=== PATIENT | female | born 1945 | race Caucasian/White ===

== ENCOUNTER 2017-04-04 19:19 | Inpatient (IN) | payer MEDICARE, MEDICAID ==
[~2017-04-04] VITALS: Ht 167.6 cm; Wt 54.4 kg
--- NOTE | 2017-04-04 19:54 | NUR ---
DR HUNTER AT [facility] FOR [facility]. Addendum: 04/04/17 at 2247 by BABAK Pt medicated for cont discomfort, will monitor for effects of medication.
--- NOTE | 2017-04-04 20:19 | NUR ---
Pt seen by Dr. Gonzalez. Labs drawn and sent. PCXR obtained. Pt medicated for discomfort, will monitor for effects of medication. Pt resting in position of comfort for self.
[2017-04-04 20:24] LABS: BASOPHILS % (AUTO) 0.2 % (0.0-2.0); EOSINOPHILS % (AUTO) 0.3 % (0.0-7.0); HEMOGLOBIN 9.4 G/DL (12.0-16.0); LYMPHOCYTES # (AUTO) 0.9 K/UL (0.8-4.8); LYMPHOCYTES % (AUTO) 9.8 % (20.5-51.5); MEAN CORPUSCULAR HEMOGLOBIN 29.2 UUG (27.0-31.0); MEAN CORPUSCULAR HGB CONC 32 g/dL (32.0-37.0); MEAN CORPUSCULAR VOLUME 90.1 FL (81.0-99.0); MONOCYTES # (AUTO) 0.3 K/UL (0.1-1.30); MONOCYTES % (AUTO) 2.8 % (0.0-11.0); NEUTROPHILS # (AUTO) 8.4 K/UL (1.8-8.9); NEUTROPHILS % (AUTO) 86.9 % (38.5-71.5); PLATELET COUNT (AUTO) 261 K/UL (150-450); RED BLOOD CELL COUNT(AUTO) 3.21 MIL/UL (4.2-5.4); WHITE BLOOD COUNT (AUTO) 9.6 K/UL (4.0-11.2)
[2017-04-04 20:29] LABS: CREATININE 0.9 mg/dL (0.6-1.3); POTASSIUM 3.8 mmol/L (3.5-5.1)
[2017-04-04 20:41] LABS: BILIRUBIN,DIRECT 0.1 mg/dL (0.0-0.2); BILIRUBIN,TOTAL 0.3 mg/dL (0.2-1.0); TOTAL PROTEIN, SERUM 7.5 g/dL (6.4-8.2)
--- NOTE | 2017-04-04 21:04 | NUR ---
Pt conts to c/o 04/[address] Gonzalez notified, awaiting further orders.
--- NOTE | 2017-04-04 21:59 | NUR ---
Pt to be admitted. IV established. Pt medicated for discomfort, will monitor for effects of medication.
[2017-04-04] MEDS ORDERED: BENA40TA2 PO (22:32)
[2017-04-04] MEDS ORDERED: LEVO750T46 PO (22:32)
[2017-04-04] MEDS ORDERED: MONT10TA22 PO (22:32)
[2017-04-04] MEDS ORDERED: ALBU18HF2 IH (22:32)
[2017-04-04] MEDS ORDERED: SERT100T PO (22:32)
[2017-04-04] MEDS ORDERED: TIOT18CA3 IH (22:32)
[2017-04-04] MEDS ORDERED: AMLO5TAB4 PO (22:32)
[2017-04-04] MEDS ORDERED: GUAI100S9 PO (22:32)
[2017-04-04] MEDS ORDERED: PRED20TA PO (22:32)
[2017-04-04] MEDS ORDERED: SIMV40TA5 PO (22:32)
[2017-04-04] MEDS ORDERED: FLUT1BLS4 IH (22:32)
[2017-04-04] MEDS ORDERED: OMEP20TA5 PO (22:32)
[2017-04-04] MEDS ORDERED: IBUP-1955 PO (22:32)
--- NOTE | 2017-04-04 22:37 | NUR ---
Pt ambulated to br with steady gait. Pt conts to c/o pain. Dr. Gonzalez notified, awaiting further orders.
--- NOTE | 2017-04-04 22:52 | NUR ---
Report called to [facility]. Preparing to transfer pt to the floor.
--- NOTE | 2017-04-04 23:25 | NUR ---
RECEIVED PATIENT FROM ER VIA [employer]. PATIENT A/O X4, COOPERATIVE, LIVELY, WITH NO SIGNS OF PAIN OR DISCOMFORT. PATIENT ON TELE. INITIAL ASSESSMENT COMPLETED. IV HEP LOCK RIGHT AC 20G. CALL LIGHT PLACED WITHIN REACH OF PATIENT. WILL CONTINUE TO MONITOR THROUGH SHIFT.
[2017-04-04 23:38] VITALS: BP 147/68
[2017-04-05 04:00] VITALS: BP 119/75
--- NOTE | 2017-04-05 06:54 | NUR ---
PATIENT LYING IN BED SLEEPING WITH NO SIGNS OF PAIN OR DISCOMFORT. VITALS STABLE AT END OF SHIFT. ALL NEEDS ATTENDED THROUGH OUT SHIFT. SHIFT REPORT GIVEN AT BEDSIDE.
[2017-04-05 07:59] LABS: BASOPHILS % (AUTO) 0.3 % (0.0-2.0); EOSINOPHILS # (AUTO) 0.1 K/uL (0.0-0.7); EOSINOPHILS % (AUTO) 0.7 % (0.0-7.0); HEMOGLOBIN 9.3 G/DL (12.0-16.0); LYMPHOCYTES # (AUTO) 2.4 K/UL (0.8-4.8); LYMPHOCYTES % (AUTO) 28.2 % (20.5-51.5); MEAN CORPUSCULAR HEMOGLOBIN 29.3 UUG (27.0-31.0); MEAN CORPUSCULAR HGB CONC 32 g/dL (32.0-37.0); MONOCYTES # (AUTO) 0.5 K/UL (0.1-1.30); MONOCYTES % (AUTO) 6.1 % (0.0-11.0); NEUTROPHILS # (AUTO) 5.6 K/UL (1.8-8.9); NEUTROPHILS % (AUTO) 64.7 % (38.5-71.5); PLATELET COUNT (AUTO) 245 K/UL (150-450); RED BLOOD CELL COUNT(AUTO) 3.19 MIL/UL (4.2-5.4); WHITE BLOOD COUNT (AUTO) 8.6 K/UL (4.0-11.2)
[2017-04-05 08:41] LABS: BILIRUBIN,TOTAL 0.2 mg/dL (0.2-1.0); MAGNESIUM 1.7 mg/dL (1.8-2.4); PHOSPHOROUS 4.8 mg/dL (2.5-4.9); POTASSIUM 3.8 mmol/L (3.5-5.1); TOTAL PROTEIN, SERUM 7.2 g/dL (6.4-8.2)
[2017-04-05 09:13] LABS: THYROID STIMULATING HORMONE 3.186 mIU/mL (0.358-3.740)
[2017-04-05 11:44] VITALS: BP 114/72
[2017-04-05 15:26] VITALS: BP 98/61
--- NOTE | 2017-04-05 18:09 | NUR ---
1000 Patient does not complain and does not present any signs/symptoms of chest pain. Patient complained of pain in bilateral knees and hands. [place] PRN given to patient and pain decreased to tolerable level.
--- NOTE | 2017-04-05 18:11 | NUR ---
1600 patient complained of pain in knees bilaterally and in the hands. Pain verbalized pain level of 9/10 on pain scale. Grant given to patient and patient's pain reassessed and decreased to a tolerable level of 3/10 on pain scale. Patient did not complain of chest pain throughout chest.
--- NOTE | 2017-04-05 19:00 | NUR ---
RECEIVED PT IN BED. AWAKE, ALERT X4. ROOM AIR. HEP LOCK RIGHT FOREARM INTACT. ABLE TO VERBALIZE NEEDS. DENIES C/O OF SOB. NO ACUTE DISTRESS NOTED. CALL LIGHT WITHIN REACH. WILL CONTINUE TO MONITOR.
[2017-04-05 20:25] VITALS: BP 114/60
--- NOTE | 2017-04-06 03:30 | NUR ---
PT AWAKE IN BED NO ACUTE DISTRESS NOTED. PT DID NOT WANT MEDICATION FOR SLEEP. CONTINUOUSLY ASKING FOR COFFEE. NO C/O PHYSICAL DISCOMFORT AT THIS TIME. NO ACUTE DISTRESS NOTED. WILL CONTINUE TO MONITOR FOR SAFETY.
[2017-04-06 06:00] VITALS: BP 136/72
[2017-04-06 06:42] LABS: BASOPHILS % (AUTO) 0.4 % (0.0-2.0); EOSINOPHILS # (AUTO) 0.1 K/uL (0.0-0.7); EOSINOPHILS % (AUTO) 1.1 % (0.0-7.0); HEMATOCRIT 32.3 % (37-47); HEMOGLOBIN 10.6 G/DL (12.0-16.0); LYMPHOCYTES # (AUTO) 2.2 K/UL (0.8-4.8); MEAN CORPUSCULAR HEMOGLOBIN 29.8 UUG (27.0-31.0); MEAN CORPUSCULAR HGB CONC 33 g/dL (32.0-37.0); MEAN CORPUSCULAR VOLUME 90.9 FL (81.0-99.0); MONOCYTES # (AUTO) 0.5 K/UL (0.1-1.30); MONOCYTES % (AUTO) 6.5 % (0.0-11.0); NEUTROPHILS # (AUTO) 5.4 K/UL (1.8-8.9); PLATELET COUNT (AUTO) 246 K/UL (150-450); RED BLOOD CELL COUNT(AUTO) 3.56 MIL/UL (4.2-5.4); WHITE BLOOD COUNT (AUTO) 8.2 K/UL (4.0-11.2)
[2017-04-06 07:05] LABS: BILIRUBIN,TOTAL 0.2 mg/dL (0.2-1.0); MAGNESIUM 1.9 mg/dL (1.8-2.4); PHOSPHOROUS 4.9 mg/dL (2.5-4.9); TOTAL PROTEIN, SERUM 7.1 g/dL (6.4-8.2)
[2017-04-06 08:53] LABS: *BILIRUBIN,URIN NEGATIVE (NEGATIVE); *BLOOD, URINE NEGATIVE (NEGATIVE); *CLARITY,URINE CLEAR (CLEAR); *COLOR,URINE YELLOW (YELLOW); *KETONES,URINE NEGATIVE (NEGATIVE); *PROTEIN,URINE NEGATIVE (NEGATIVE); *UROBILINOGEN,URINE 0.2 E.U./dl (NORMAL); LEUKOCYTE ESTERASE ,URINE TRACE (NEGATIVE); NITRITE, URINE NEGATIVE (NEGATIVE); UGLUCOSE NEGATIVE (NEGATIVE)
[2017-04-06 08:57] LABS: BACTERIA,URINE NONE SEEN /HPF (NONE SEEN); RBC,URINE NONE SEEN /HPF (0-3); SQUAMOUS EPITHELIAL CELL,UR FEW /HPF (NONE SEEN); WBC,URINE 0-3 /HPF (0-3)
[2017-04-06 11:50] VITALS: BP 122/71
[2017-04-06 16:05] VITALS: BP 139/61
--- NOTE | 2017-04-06 18:17 | NUR ---
. NO COMPLAINTS OF CHEST PAIN. COMPLAINS OF PAIN OF 9/10 ON PAIN SCALE IN BACK, KNEES, AND HANDS. NORCO ADMINISTERED TO PATIENT, LAST GIVEN AT 1809. PATIENT'S IRON LEVELS LOW (26); FERRITON GIVEN TO PATIENT. PATIENT EXPERIENCED CONSTIPATION; PRUNE JUICE MIXED WITH MILK OF MAGNESIUM GIVEN TO PATIENT 1630. OCCULT BLOOD STOOL ORDERED AND EQUIPMENT PROVIDED TO PATIENT BUT PATIENT AWAITING BOWEL MOVEMENT AT 0630. PATIENT'S VITAL SIGNS WNL THROUGHOUT SHIFT.
[2017-04-06 20:17] VITALS: BP 118/55
[2017-04-07 04:00] VITALS: BP 126/81
--- NOTE | 2017-04-07 06:30 | NUR ---
PT SLEPT WELL, IN NO ACUTE DISTRESS, NO C/O OF SOB, CHEST PAIN. PAIN MANAGEMENT ORDERED. NO SIGNIFICANT CHANGE OF CONDITION THROUGHOUT THE SHIFT. CALL LIGHT WITHIN REACH, BED ALARM ON. WILL CONTINUE TO MONITOR.
[2017-04-07 06:44] LABS: BASOPHILS % (AUTO) 0.2 % (0.0-2.0); EOSINOPHILS % (AUTO) 0.4 % (0.0-7.0); HEMATOCRIT 34.3 % (37-47); HEMOGLOBIN 11.3 G/DL (12.0-16.0); LYMPHOCYTES # (AUTO) 1.1 K/UL (0.8-4.8); LYMPHOCYTES % (AUTO) 16.7 % (20.5-51.5); MEAN CORPUSCULAR HEMOGLOBIN 29.9 UUG (27.0-31.0); MEAN CORPUSCULAR HGB CONC 33 g/dL (32.0-37.0); MEAN CORPUSCULAR VOLUME 90.9 FL (81.0-99.0); MONOCYTES # (AUTO) 0.3 K/UL (0.1-1.30); MONOCYTES % (AUTO) 3.7 % (0.0-11.0); NEUTROPHILS # (AUTO) 5.4 K/UL (1.8-8.9); PLATELET COUNT (AUTO) 288 K/UL (150-450); RED BLOOD CELL COUNT(AUTO) 3.77 MIL/UL (4.2-5.4); WHITE BLOOD COUNT (AUTO) 6.9 K/UL (4.0-11.2)
[2017-04-07 06:56] LABS: CREATININE 0.9 mg/dL (0.6-1.3); PHOSPHOROUS 3.9 mg/dL (2.5-4.9); POTASSIUM 4.3 mmol/L (3.5-5.1)
--- NOTE | 2017-04-07 08:00 | NUR ---
Discussed plan of care with pt re: pain management and fall precautions. Pt agreeable with plan of care. Call light is within reach.
[2017-04-07 09:11] LABS: VIT D, 25-HYDROXY 15.2 ng/mL (30.0-100.0)
[2017-04-07 11:43] VITALS: BP 139/65
[2017-04-07 16:06] VITALS: BP 127/67
--- NOTE | 2017-04-07 18:30 | NUR ---
Plan of care effective no fall and pt has remained on her pain goal of 2/10. Call light is within reach.
[2017-04-07 20:00] VITALS: BP 143/69
--- NOTE | 2017-04-07 23:00 | NUR ---
ALERT AND ORIENTED X4. AMBULATORY. PAIN 9/0 GIVEN OPIATES SCHEDULED. IV CATH LEAKING, REINSERTED ON RT FOREARM.
[2017-04-08 04:53] VITALS: BP 130/76
[2017-04-08 11:30] VITALS: BP 110/69
[2017-04-08] MEDS ORDERED: MAGN400O6 PO (11:55)
[2017-04-08] MEDS ORDERED: ZOLP5TAB8 PO (11:55)
[2017-04-08] MEDS ORDERED: Oxycodone Sr PO (11:55)
[2017-04-08] MEDS ORDERED: DOCU100C36 PO (11:55)
[2017-04-08] MEDS ORDERED: ASPI-618 PO (11:55)
[2017-04-08] MEDS ORDERED: CYAN10006 IM (11:55)
[2017-04-08] MEDS ORDERED: ACET325T53 PO (11:55)
[2017-04-08] MEDS ORDERED: METH4TAB3 PO (11:55)
[2017-04-08] MEDS ORDERED: FERR325T28 PO (11:55)
[2017-04-08] MEDS ORDERED: CHOL10002 PO (11:55)
[2017-04-08] MEDS ORDERED: OMEG1CAP PO (11:55)
[2017-04-08] MEDS ORDERED: HYDR-3326 PO (11:55)
[2017-04-08] MEDS ORDERED: BISA10SU12 RC (12:04)
--- NOTE | 2017-04-08 14:30 | NUR ---
Report given to EMT and TRAV RN from SNF. Pt is in no acute distress. Pt finally had a LARGE BOWEL MOVEMENT today. Mag citrate and suppository was effective. Pt is in no acute distress upon discharge. IV d/c. Discharge instructions given to pt. Pt verbalized understanding. Copy of medications reconciliation sent to SNF. Pt skin remains intact. Pt d/c to [facility] per case management.
[2017-04-08 15:39] LABS: *OCCULT BLOOD STOOL NEGATIVE (NEGATIVE)
== END 2017-04-08 15:00 | DRG 191 ==
LOC: ER 19:19 → TELE 22:59 → MED 04-05 10:30
PROVIDERS: ADMIT Internal Medicine; ATTEND Internal Medicine
DX: J44.0 Chronic obstructive pulmonary disease with (acute) lower respiratory infection (principal); I38 Endocarditis, valve unspecified; I11.9 Hypertensive heart disease without heart failure; F17.210 Nicotine dependence, cigarettes, uncomplicated; E53.8 Deficiency of other specified B group vitamins; D50.9 Iron deficiency anemia, unspecified; J44.1 Chronic obstructive pulmonary disease with (acute) exacerbation; J20.8 Acute bronchitis due to other specified organisms; E83.42 Hypomagnesemia; M41.9 Scoliosis, unspecified; A49.9 Bacterial infection, unspecified; Z79.899 Other long term (current) drug therapy; E78.5 Hyperlipidemia, unspecified; G89.29 Other chronic pain; K21.9 Gastro-esophageal reflux disease without esophagitis; Z59.0 Homelessness; K56.41 Fecal impaction; I70.0 Atherosclerosis of aorta; E55.9 Vitamin D deficiency, unspecified; K29.70 Gastritis, unspecified, without bleeding
CPT/HCPCS: 36415; 70030-TC; 71010; 82306; 82378; 83550; 83735; 84100; 84443; 85025; 85730; 87086; 93005; 93307; 94664; A4217; A4663; J1940; J1956; J2270; J2405; J2916; J3420; J3475; J3490; J7050; J7512

== ENCOUNTER 2017-04-30 22:01 | Inpatient (IN) | payer MEDICAID, MEDICARE ==
[~2017-04-30] VITALS: Ht 170.2 cm; Wt 50.8 kg
[~2017-04-30 22:01] MED LIST: ACET325T53 PO; ALBU18HF2 IH; AMLO5TAB4 PO; ASPI-618 PO; BISA10SU12 RC; CHOL10002 PO; CYAN10006 IM; DOCU100C36 PO; FERR325T28 PO; FLUT1BLS4 IH; GUAI100S9 PO; HYDR-3326 PO; MAGN400O6 PO; METH4TAB3 PO; MONT10TA22 PO; OMEG1CAP PO; OMEP20TA5 PO; Oxycodone Sr PO; SERT100T PO; TIOT18CA3 IH; ZOLP5TAB8 PO
[2017-04-30] MEDS ORDERED: LEVOFLOXACIN 750MG/D5W 150 ML IV ONE (22:15)
[2017-04-30] MEDS ORDERED: IV NORMAL SALINE 1000 ML BAG IV ONE (22:15)
[2017-04-30] MEDS ORDERED: PIPERACILLIN SODIUM/TAZOBACTAM 3.375 G in IV DEXTROSE 5% 50 ML IV ONE (22:15)
[2017-04-30] MEDS ORDERED: UBID100C PO (22:24)
[2017-04-30 22:40] LABS: CREATININE 0.8 mg/dL (0.6-1.3); POTASSIUM 3.4 mmol/L (3.5-5.1)
[2017-04-30 22:41] LABS: BASOPHILS % (AUTO) 0.3 % (0.0-2.0); EOSINOPHILS % (AUTO) 0.2 % (0.0-7.0); HEMATOCRIT 34.2 % (37-47); HEMOGLOBIN 11.4 G/DL (12.0-16.0); LYMPHOCYTES # (AUTO) 1.3 K/UL (0.8-4.8); LYMPHOCYTES % (AUTO) 8.5 % (20.5-51.5); MEAN CORPUSCULAR HGB CONC 33 g/dL (32.0-37.0); MEAN CORPUSCULAR VOLUME 90.3 FL (81.0-99.0); MONOCYTES % (AUTO) 6.6 % (0.0-11.0); NEUTROPHILS # (AUTO) 12.6 K/UL (1.8-8.9); NEUTROPHILS % (AUTO) 84.4 % (38.5-71.5); PLATELET COUNT (AUTO) 259 K/UL (150-450); RED BLOOD CELL COUNT(AUTO) 3.78 MIL/UL (4.2-5.4); WHITE BLOOD COUNT (AUTO) 14.9 K/UL (4.0-11.2)
[2017-04-30 22:53] LABS: BILIRUBIN,DIRECT 0.1 mg/dL (0.0-0.2); BILIRUBIN,TOTAL 0.4 mg/dL (0.2-1.0); TOTAL PROTEIN, SERUM 7.7 g/dL (6.4-8.2)
[2017-04-30 22:58] LABS: *BILIRUBIN,URIN NEGATIVE (NEGATIVE); *BLOOD, URINE NEGATIVE (NEGATIVE); *CLARITY,URINE CLEAR (CLEAR); *COLOR,URINE STRAW (YELLOW); *KETONES,URINE NEGATIVE (NEGATIVE); *PROTEIN,URINE NEGATIVE (NEGATIVE); *UROBILINOGEN,URINE 0.2 E.U./dl (NORMAL); LEUKOCYTE ESTERASE ,URINE NEGATIVE (NEGATIVE); NITRITE, URINE NEGATIVE (NEGATIVE); PH,URINE 6.5 (5.0-8.0); UGLUCOSE NEGATIVE (NEGATIVE)
[2017-04-30] MEDS ORDERED: HYDROCODONE/APAP 5-325MG TABLET PO ONE (23:00)
[2017-04-30 23:16] LABS: BACTERIA,URINE FEW /HPF (NONE SEEN); RBC,URINE 0-3 /HPF (0-3); SQUAMOUS EPITHELIAL CELL,UR FEW /HPF (NONE SEEN); WBC,URINE 0-3 /HPF (0-3)
[2017-04-30 23:22] LABS: BAND % (MANUAL) 9 % (0-10); LYMPHOCYTES % (MANUAL) 12 % (20-40); MONOCYTES % (MANUAL) 2 % (2-10); NEUTROPHILS % (MANUAL) 77 % (42-75)
[2017-04-30] MEDS ORDERED: HYDROCODONE/APAP 5-325MG TABLET ONE (23:24)
--- NOTE | 2017-04-30 23:38 | NUR ---
Call placed to [facility], Dr. Jose will be paged.
[2017-05-01] MEDS ORDERED: HYDROCODONE/APAP 5-325MG TABLET PO ONE
[2017-05-01] MEDS ORDERED: HYDROCODONE/APAP 5-325MG TABLET ONE (00:09)
[2017-05-01 01:05] VITALS: BP 98/49
--- NOTE | 2017-05-01 01:05 | NUR ---
TRANSFERED TO 2ND FLOOR TELE VIA [facility]
--- NOTE | 2017-05-01 01:10 | NUR ---
ADMITTED IN TELE UNIT UNDER THE CARE OF DR SLOAN, INVENTORY LIST DONE.
[2017-05-01] MEDS ORDERED: ONDANSETRON 4 MG/2 ML VIAL IV PRN (02:30)
[2017-05-01] MEDS ORDERED: HYDROMORPHONE 1 MG/1 ML DISP.SYRIN IV PRN (02:30)
[2017-05-01 04:00] VITALS: BP 122/61
[2017-05-01] MEDS: ACETAMINOPHEN 325 MG TABLET PO PRN ×3 (06:09→23:39)
--- NOTE | 2017-05-01 06:12 | NUR ---
PATIENT TEMP 100.1 GIVEN TYLENOL 650MG PO PLUS COOLING MEASURES, GIVEN HOT TEA. CONT TO MONITOR.
[2017-05-01] MEDS ORDERED: ACETAMINOPHEN 325 MG TABLET ONE (06:22)
--- NOTE | 2017-05-01 07:12 | NUR ---
PATIENT UNCOOPERATIVE WITH CARE, REFUSED TO USE COOLING BAGS, PATIENT STILL HAS ELEVATED TEMP OF 103. DUE TO PNEUMONIA, CONT COOLING MEASURES, WILL ENDORSE TO NEXT SHIFT.
[2017-05-01] MEDS: HYDROMORPHONE 2 MG/1 ML DISP.SYRIN IV PRN ×4 (08:58→21:30)
[2017-05-01 09:19] LABS: BILIRUBIN,TOTAL 0.4 mg/dL (0.2-1.0); CREATININE 0.8 mg/dL (0.6-1.3); MAGNESIUM 1.6 mg/dL (1.8-2.4); PHOSPHOROUS 2.9 mg/dL (2.5-4.9); POTASSIUM 3.1 mmol/L (3.5-5.1); TOTAL PROTEIN, SERUM 6.7 g/dL (6.4-8.2)
[2017-05-01 09:24] LABS: BASOPHILS % (AUTO) 0.1 % (0.0-2.0); EOSINOPHILS % (AUTO) 0.1 % (0.0-7.0); HEMATOCRIT 30.3 % (31.2-41.9); HEMOGLOBIN 10.3 g/dL (10.9-14.3); LYMPHOCYTES # (AUTO) 0.6 K/uL (20.0-40.0); LYMPHOCYTES % (AUTO) 4.5 % (20.5-51.5); MEAN CORPUSCULAR HGB CONC 34 g/dL (32.3-35.6); MEAN CORPUSCULAR VOLUME 90.7 fL (75.5-95.3); MONOCYTES % (AUTO) 7.9 % (0.0-11.0); NEUTROPHILS # (AUTO) 11.5 K/uL (1.8-8.9); NEUTROPHILS % (AUTO) 87.4 % (38.5-71.5); PLATELET COUNT (AUTO) 210 K/uL (179-408); RED BLOOD CELL COUNT(AUTO) 3.34 MIL/uL (3.63-4.92); WHITE BLOOD COUNT (AUTO) 13.2 K/uL (3.8-11.8)
[2017-05-01] MEDS ORDERED: OXYC20TA73 PO (10:06)
[2017-05-01] MEDS ORDERED: HYDR-3326 PO (10:06)
--- NOTE | 2017-05-01 10:35 | NUR ---
PT BP 80/43 ON RIGHT ARM, RECHECKED 78/46. PT BP 77/41 ON LEFT ARM AND RECHECKED 80/42. DR NOTIFIED AWAITING ORDERS
[2017-05-01] MEDS ORDERED: POTASSIUM CHLORIDE 20 MEQ TAB.PRT.SR PO ONE (10:45)
[2017-05-01] MEDS ORDERED: MAGNESIUM OXIDE 400 MG TABLET PO ONE (10:45)
[2017-05-01] MEDS ORDERED: PIPERACILLIN/TAZOBACTAM/D5W 3.375 G in PREMIXED 1 EACH IV SCH (10:45)
[2017-05-01] MEDS ORDERED: BISACODYL 10 MG SUPP.RECT RC PRN (11:00)
[2017-05-01] MEDS ORDERED: MAGNESIUM HYDROXIDE 30 ML LIQUID UDC PO PRN (11:00)
[2017-05-01] MEDS ORDERED: IV NORMAL SALINE 250 ML IV ONE (11:30)
[2017-05-01 11:41] VITALS: BP 80/42
[2017-05-01] MEDS: POTASSIUM CHLORIDE 20 MEQ in IV NS 1000 ML 1,000 ML IV PRN (12:39)
[2017-05-01] MEDS: PIPERACILLIN/TAZOBACTAM/D5W 3.375 G in PREMIXED 1 EACH IV SCH ×2 (12:39→22:03)
--- NOTE | 2017-05-01 12:45 | NUR ---
PT BP 103/60. PT REQUESTING PAIN MEDICATION, PAIN MEDICATION GIVEN. WILL CONTINUE TO MONITOR CLOSELY
--- NOTE | 2017-05-01 14:35 | NUR ---
PT TEMP 100.6, TYLENOL GIVEN WILL CONTINUE TO MONITOR
[2017-05-01 15:14] VITALS: BP 85/43
[2017-05-01 20:00] VITALS: BP 107/62
--- NOTE | 2017-05-01 20:00 | NUR ---
PATIENT ALERT, ORIENTED X3 ,TEMP 98.9 BP107/62,SEEN BY , ORDER RECEIVED.CONTINUE C/O GENERALIZED CHRONIC PAIN , PAIN MEDICATION GIVEN NEEDED, MONITOR BP CLOSELY.
[2017-05-01] MEDS ORDERED: OXYCODONE HCL 20 MG PO SCH (21:00)
[2017-05-01] MEDS: DOCUSATE SODIUM 100 MG CAPSULE PO SCH (21:30)
[2017-05-01] MEDS: OXYCODONE HCL 20 MG TAB.SR.12H PO SCH (21:30)
[2017-05-01] MEDS: OMEGA-3 FATTY ACIDS/FISH OIL CAPSULE PO SCH (21:31)
[2017-05-01] MEDS: ZOLPIDEM 5 MG TABLET PO PRN (21:56)
[2017-05-01] MEDS: SENNOSIDES 1 TABLET PO SCH (21:58)
[2017-05-01] MEDS ORDERED: SENNOSIDES 1 TABLET ONE (22:03)
--- NOTE | 2017-05-01 23:50 | NUR ---
TYLENOL 650 MG PO GIVEN FOR TEMP 100.6, PATIENT CONTINUE HAVING DRY COUGHING OCCASIONALLY.NO RESPIRATORY DISTRESS.
[2017-05-02 00:38] VITALS: BP 90/48
[2017-05-02] MEDS: HYDROMORPHONE 2 MG/1 ML DISP.SYRIN IV PRN ×6 (02:43→20:53)
[2017-05-02] MEDS: POTASSIUM CHLORIDE 20 MEQ in IV NS 1000 ML 1,000 ML IV PRN ×2 (02:46→16:26)
[2017-05-02] MEDS ORDERED: HYDROMORPHONE 2 MG/1 ML DISP.SYRIN ONE (02:55)
[2017-05-02 04:00] VITALS: BP 113/47
[2017-05-02] MEDS: PIPERACILLIN/TAZOBACTAM/D5W 3.375 G in PREMIXED 1 EACH IV SCH ×3 (05:43→22:11)
--- NOTE | 2017-05-02 06:00 | NUR ---
TEMP 97.3,NO SOB NOTED,LESS COUGH ,CONTINUE WITH PAIN MANAGEMENT ORDERED.
[2017-05-02 07:29] LABS: BASOPHILS % (AUTO) 0.3 % (0.0-2.0); EOSINOPHILS # (AUTO) 0.2 K/uL (0.0-0.7); EOSINOPHILS % (AUTO) 1.8 % (0.0-7.0); HEMATOCRIT 28.7 % (37-47); HEMOGLOBIN 9.8 G/DL (12.0-16.0); LYMPHOCYTES # (AUTO) 1.2 K/UL (0.8-4.8); MEAN CORPUSCULAR HGB CONC 34 g/dL (32.0-37.0); MEAN CORPUSCULAR VOLUME 91.2 FL (81.0-99.0); MONOCYTES # (AUTO) 0.9 K/UL (0.1-1.30); MONOCYTES % (AUTO) 7.5 % (0.0-11.0); NEUTROPHILS # (AUTO) 10.1 K/UL (1.8-8.9); NEUTROPHILS % (AUTO) 80.4 % (38.5-71.5); PLATELET COUNT (AUTO) 196 K/UL (150-450); RED BLOOD CELL COUNT(AUTO) 3.15 MIL/UL (4.2-5.4); WHITE BLOOD COUNT (AUTO) 12.4 K/UL (4.0-11.2)
--- NOTE | 2017-05-02 08:00 | NUR ---
AWAKE ALERT COOPERATE WELL NO SOB ON FALL PRECAUTION BED ALARM ON AND CALL CAPPS IN REACH
[2017-05-02 08:04] LABS: BILIRUBIN,TOTAL 0.2 mg/dL (0.2-1.0); CREATININE 0.8 mg/dL (0.6-1.3); MAGNESIUM 1.8 mg/dL (1.8-2.4); PHOSPHOROUS 2.9 mg/dL (2.5-4.9); TOTAL PROTEIN, SERUM 5.8 g/dL (6.4-8.2)
[2017-05-02] MEDS: OMEGA-3 FATTY ACIDS/FISH OIL CAPSULE PO SCH ×2 (08:28→21:10)
[2017-05-02] MEDS: MONTELUKAST SODIUM 10 MG TABLET PO SCH (08:28)
[2017-05-02] MEDS: FERROUS SULFATE 325 MG TABEC PO SCH (08:28)
[2017-05-02] MEDS: ASPIRIN EC 81 MG TABLET.DR PO SCH (08:28)
[2017-05-02] MEDS: CHOLECALCIFEROL 1,000 UNIT TABLET PO SCH (08:28)
[2017-05-02] MEDS: OXYCODONE HCL 20 MG TAB.SR.12H PO SCH ×2 (08:29→21:10)
[2017-05-02] MEDS: SERTRALINE HCL 100 MG TABLET PO SCH (09:42)
[2017-05-02 09:55] LABS: BAND % (MANUAL) 16 % (0-10); EOSINOPHILS % (MANUAL) 2 % (0-8); LYMPHOCYTES % (MANUAL) 11 % (20-40); MONOCYTES % (MANUAL) 7 % (2-10); NEUTROPHILS % (MANUAL) 64 % (42-75)
[2017-05-02 11:23] VITALS: BP 105/62
[2017-05-02 15:29] VITALS: BP 92/40
[2017-05-02] MEDS: MUPIROCIN 2% OINT 22 GM TUBE NS SCH ×2 (15:51→21:09)
--- NOTE | 2017-05-02 17:00 | NUR ---
HEMODYNAMIC STATUS STABLE PAIN UNDER CONTROL NO ACUTE DISTRESS SAFETY MEASURE PROVIDED CALL LIGHT IN REACH AND BED ALARM ON
[2017-05-02 20:08] VITALS: BP 100/47
[2017-05-02] MEDS: ZOLPIDEM 5 MG TABLET PO PRN (20:49)
[2017-05-02] MEDS ORDERED: SENNOSIDES 1 TABLET PO SCH (21:00)
[2017-05-02] MEDS: DOCUSATE SODIUM 100 MG CAPSULE PO SCH (21:10)
[2017-05-02] MEDS: SENNOSIDES 1 TABLET PO SCH (21:10)
[2017-05-03] MEDS: HYDROMORPHONE 2 MG/1 ML DISP.SYRIN IV PRN ×8 (00:13→21:48)
[2017-05-03] MEDS: POTASSIUM CHLORIDE 20 MEQ in IV NS 1000 ML 1,000 ML IV PRN ×2 (05:01→21:31)
[2017-05-03] MEDS: PIPERACILLIN/TAZOBACTAM/D5W 3.375 G in PREMIXED 1 EACH IV SCH ×3 (05:01→21:45)
[2017-05-03 06:49] VITALS: BP 114/57
--- NOTE | 2017-05-03 07:00 | NUR ---
No significant change, medicated for pain PRN. Attended w/ all needs. Will continue to monitor.
[2017-05-03] MEDS: CHOLECALCIFEROL 1,000 UNIT TABLET PO SCH (08:10)
[2017-05-03] MEDS: ASPIRIN EC 81 MG TABLET.DR PO SCH (08:10)
[2017-05-03] MEDS: OXYCODONE HCL 20 MG TAB.SR.12H PO SCH ×2 (08:10→20:20)
[2017-05-03] MEDS: MONTELUKAST SODIUM 10 MG TABLET PO SCH (08:10)
[2017-05-03] MEDS: FERROUS SULFATE 325 MG TABEC PO SCH (08:10)
[2017-05-03] MEDS: OMEGA-3 FATTY ACIDS/FISH OIL CAPSULE PO SCH ×2 (08:10→20:18)
[2017-05-03] MEDS: SERTRALINE HCL 100 MG TABLET PO SCH (08:10)
[2017-05-03] MEDS: MUPIROCIN 2% OINT 22 GM TUBE NS SCH ×2 (08:11→20:21)
--- NOTE | 2017-05-03 08:30 | NUR ---
AWAKE ALERT COOPERATE WELL NO SOB EAT WELL STATE PAIN MEDICINE HELP TO RELIEF PAIN ON FALL PRECAUTION CALL LIGHT IN REACH AND BED ALARM ON
--- NOTE | 2017-05-03 10:00 | NUR ---
KEEP NPO FOR CT OF ABD AND CHEST TODAY CONSENT SIGNS
[2017-05-03 11:48] VITALS: BP 131/65
[2017-05-03] MEDS ORDERED: FLUTICASONE/VILANTEROL 1 EACH BLST.W.DEV INH SCH (13:00)
--- NOTE | 2017-05-03 13:30 | NUR ---
START DRINK X RAY CONTRAST PO NAREN WELL NO N/V AND WILL GO DOWN TO CAT SCAN AFTER FINISHED
[2017-05-03] MEDS ORDERED: BARIUM SULFATE 450 ML ORAL.SUSP ONE (13:39)
[2017-05-03 15:18] VITALS: BP 135/68
[2017-05-03] MEDS ORDERED: IV NORMAL SALINE 250 ML IV ONE (17:25)
[2017-05-03] MEDS ORDERED: NORMAL SALINE FLUSH 10 ML DISP.SYRIN ONE (17:25)
[2017-05-03] MEDS ORDERED: IOHEXOL 300MG/ML 100 ML INFUS..BTL ONE (17:25)
--- NOTE | 2017-05-03 17:30 | NUR ---
TO X RAY FOR CAT SCAN VIA W/C CONDITION STABLE
[2017-05-03 20:00] VITALS: BP 117/46
[2017-05-03] MEDS: SENNOSIDES 1 TABLET PO SCH (20:18)
[2017-05-03] MEDS: DOCUSATE SODIUM 100 MG CAPSULE PO SCH (20:19)
[2017-05-03] MEDS ORDERED: MUPIROCIN 2% OINT 22 GM TUBE NS SCH (21:00)
[2017-05-03] MEDS: DOXYCYCLINE HYCLATE 100 MG TABLET PO SCH (22:29)
[2017-05-03] MEDS: ACETAMINOPHEN 325 MG TABLET PO PRN (22:29)
[2017-05-03] MEDS ORDERED: DOXYCYCLINE HYCLATE 100 MG TABLET ONE (22:41)
--- NOTE | 2017-05-03 23:30 | NUR ---
Temp. rechecked noted with 99.2'F. Will continue to monitor.
[2017-05-04] MEDS: PIPERACILLIN/TAZOBACTAM/D5W 3.375 G in PREMIXED 1 EACH IV SCH ×3 (05:39→21:01)
[2017-05-04] MEDS: HYDROMORPHONE 2 MG/1 ML DISP.SYRIN IV PRN ×3 (06:10→19:49)
[2017-05-04 06:11] LABS: BASOPHILS % (AUTO) 0.3 % (0.0-2.0); EOSINOPHILS # (AUTO) 0.2 K/uL (0.0-0.7); HEMATOCRIT 27.4 % (37-47); LYMPHOCYTES # (AUTO) 1.2 K/UL (0.8-4.8); LYMPHOCYTES % (AUTO) 10.2 % (20.5-51.5); MEAN CORPUSCULAR HEMOGLOBIN 30.1 UUG (27.0-31.0); MEAN CORPUSCULAR HGB CONC 33 g/dL (32.0-37.0); MEAN CORPUSCULAR VOLUME 91.6 FL (81.0-99.0); MONOCYTES % (AUTO) 8.8 % (0.0-11.0); NEUTROPHILS # (AUTO) 9.4 K/UL (1.8-8.9); NEUTROPHILS % (AUTO) 78.7 % (38.5-71.5); PLATELET COUNT (AUTO) 224 K/UL (150-450); RED BLOOD CELL COUNT(AUTO) 2.99 MIL/UL (4.2-5.4); WHITE BLOOD COUNT (AUTO) 11.8 K/UL (4.0-11.2)
[2017-05-04 06:18] VITALS: BP 143/69
[2017-05-04 06:24] LABS: CREATININE 0.7 mg/dL (0.6-1.3); MAGNESIUM 1.9 mg/dL (1.8-2.4); PHOSPHOROUS 3.6 mg/dL (2.5-4.9); POTASSIUM 4.3 mmol/L (3.5-5.1)
--- NOTE | 2017-05-04 06:51 | NUR ---
Patient complained of back pain, Dilaudid 0.5mg IV given as ordered. Vital signs taken, afebrile and no signs of respiratory distress.
--- NOTE | 2017-05-04 07:28 | NUR ---
AWAKE ALERT COOPERATE WELL NO SOB NOTED.CALL LIGHT WITH IN REACH.
[2017-05-04] MEDS: OMEGA-3 FATTY ACIDS/FISH OIL CAPSULE PO SCH ×2 (08:14→20:42)
[2017-05-04] MEDS: CHOLECALCIFEROL 1,000 UNIT TABLET PO SCH (08:14)
[2017-05-04] MEDS: SERTRALINE HCL 100 MG TABLET PO SCH (08:14)
[2017-05-04] MEDS: OXYCODONE HCL 20 MG TAB.SR.12H PO SCH ×2 (08:15→20:43)
[2017-05-04] MEDS: MONTELUKAST SODIUM 10 MG TABLET PO SCH (08:15)
[2017-05-04] MEDS: ASPIRIN EC 81 MG TABLET.DR PO SCH (08:15)
[2017-05-04] MEDS: BREO ELLIPTA INH SCH (08:16)
[2017-05-04] MEDS: MUPIROCIN 2% OINT 22 GM TUBE NS SCH ×2 (08:18→20:43)
[2017-05-04] MEDS: DOXYCYCLINE HYCLATE 100 MG TABLET PO SCH ×2 (08:19→20:42)
[2017-05-04] MEDS: FERROUS SULFATE 325 MG TABEC PO SCH (10:14)
[2017-05-04] MEDS: POTASSIUM CHLORIDE 20 MEQ in IV NS 1000 ML 1,000 ML IV PRN (10:23)
[2017-05-04 11:32] VITALS: BP 116/68
--- NOTE | 2017-05-04 14:35 | NUR ---
Patient complained of back pain, Dilaudid 0.5mg IV given as ordered. Vital signs taken, afebrile and no signs of respiratory distress.
[2017-05-04 15:43] VITALS: BP 118/64
[2017-05-04 20:26] VITALS: BP 127/82
[2017-05-04] MEDS: SENNOSIDES 1 TABLET PO SCH (20:42)
[2017-05-04] MEDS: DOCUSATE SODIUM 100 MG CAPSULE PO SCH (20:42)
[2017-05-04] MEDS: ALBUTEROL SULFATE 2.5 MG/3 ML NEBU NEB PRN (23:00)
[2017-05-04] MEDS: ZOLPIDEM 5 MG TABLET PO PRN (23:42)
[2017-05-05] MEDS: PIPERACILLIN/TAZOBACTAM/D5W 3.375 G in PREMIXED 1 EACH IV SCH ×3 (05:06→21:38)
[2017-05-05] MEDS: HYDROMORPHONE 2 MG/1 ML DISP.SYRIN IV PRN ×5 (05:56→21:28)
[2017-05-05 06:18] VITALS: BP 130/64
--- NOTE | 2017-05-05 06:30 | NUR ---
PT SLEPT INTERMITTENTLY, IN NO ACUTE DISTRESS. PT GETS SHORT OF BREATH UPON EXERTION. REFUSES BREATHING TREATMENT BUT FINALLY CONVINCED PT TO GET TX DUE TO SOB, PT HAD 1 TX THROUGHOUT THE SHIFT. PAIN MANAGEMENT ORDERED. SAFETY MEASURES IN PLACE. WILL CONTINUE TO MONITOR.
[2017-05-05 06:58] LABS: BASOPHILS % (AUTO) 0.3 % (0.0-2.0); EOSINOPHILS # (AUTO) 0.2 K/uL (0.0-0.7); EOSINOPHILS % (AUTO) 1.5 % (0.0-7.0); HEMATOCRIT 26.4 % (31.2-41.9); HEMOGLOBIN 9.1 g/dL (10.9-14.3); LYMPHOCYTES # (AUTO) 1.5 K/uL (20.0-40.0); LYMPHOCYTES % (AUTO) 14.3 % (20.5-51.5); MEAN CORPUSCULAR HEMOGLOBIN 30.9 uug (24.7-32.8); MEAN CORPUSCULAR HGB CONC 35 g/dL (32.3-35.6); MEAN CORPUSCULAR VOLUME 89.5 fL (75.5-95.3); MONOCYTES # (AUTO) 1.3 K/uL (2.0-10.0); MONOCYTES % (AUTO) 12.5 % (0.0-11.0); NEUTROPHILS # (AUTO) 7.6 K/uL (1.8-8.9); NEUTROPHILS % (AUTO) 71.4 % (38.5-71.5); PLATELET COUNT (AUTO) 253 K/uL (179-408); RED BLOOD CELL COUNT(AUTO) 2.95 MIL/uL (3.63-4.92); WHITE BLOOD COUNT (AUTO) 10.6 K/uL (3.8-11.8)
[2017-05-05 07:29] LABS: CREATININE 0.6 mg/dL (0.6-1.3)
--- NOTE | 2017-05-05 08:00 | NUR ---
Awake, alert, oriented x 4. O2 at 1L/NC. IVF infusing
[2017-05-05] MEDS: OMEGA-3 FATTY ACIDS/FISH OIL CAPSULE PO SCH ×2 (08:42→20:15)
[2017-05-05] MEDS: BREO ELLIPTA INH SCH (08:42)
[2017-05-05] MEDS: ASPIRIN EC 81 MG TABLET.DR PO SCH (08:42)
[2017-05-05] MEDS: CHOLECALCIFEROL 1,000 UNIT TABLET PO SCH (08:43)
[2017-05-05] MEDS: MONTELUKAST SODIUM 10 MG TABLET PO SCH (08:43)
[2017-05-05] MEDS: OXYCODONE HCL 20 MG TAB.SR.12H PO SCH ×2 (08:43→20:16)
[2017-05-05] MEDS: DOXYCYCLINE HYCLATE 100 MG TABLET PO SCH ×2 (08:43→20:16)
[2017-05-05] MEDS: MUPIROCIN 2% OINT 22 GM TUBE NS SCH ×2 (08:55→20:17)
[2017-05-05] MEDS: SERTRALINE HCL 100 MG TABLET PO SCH (10:11)
[2017-05-05] MEDS ORDERED: HYDROMORPHONE 1 MG/1 ML DISP.SYRIN IV ONE (11:00)
[2017-05-05] MEDS: ALBUTEROL SULFATE 2.5 MG/3 ML NEBU NEB PRN ×2 (11:09→23:35)
[2017-05-05] MEDS ORDERED: HYDROMORPHONE 2 MG/1 ML DISP.SYRIN IV ONE (11:15)
--- NOTE | 2017-05-05 11:15 | NUR ---
Still complaining of abdominal pain, PRN medication not effective. Spoke with Dr. Jose with orders for additional dose of Dilaudid 0.5 mg IV given
[2017-05-05] MEDS: FERROUS SULFATE 325 MG TABEC PO SCH (11:20)
[2017-05-05 11:27] VITALS: BP 102/54
[2017-05-05] MEDS: POTASSIUM CHLORIDE 20 MEQ in IV NS 1000 ML 1,000 ML IV PRN (12:00)
--- NOTE | 2017-05-05 13:03 | NUR ---
Called [facility] Engel regarding patient [employer] status. Patient would like to renew it. Requests to do so prior to being discharged. Awaiting call back at this time.
[2017-05-05 15:03] VITALS: BP 100/47
--- NOTE | 2017-05-05 18:43 | NUR ---
Kept comfortable. Maintained on O2, not in distress.
[2017-05-05 20:00] VITALS: BP 117/66
[2017-05-05] MEDS: LACTOBACILLUS RHAMNOSUS GG 1 EACH CAPSULE PO SCH (20:15)
[2017-05-05] MEDS: DOCUSATE SODIUM 100 MG CAPSULE PO SCH (20:15)
[2017-05-05] MEDS: SENNOSIDES 1 TABLET PO SCH (20:16)
[2017-05-05] MEDS: methylPREDNISolone SOD SUCC 40 MG/ML VIAL IV SCH (21:39)
[2017-05-06] MEDS: HYDROMORPHONE 2 MG/1 ML DISP.SYRIN IV PRN ×6 (00:22→18:13)
[2017-05-06] MEDS: POTASSIUM CHLORIDE 20 MEQ in IV NS 1000 ML 1,000 ML IV PRN (00:24)
[2017-05-06 05:01] VITALS: BP 133/66
[2017-05-06] MEDS: PIPERACILLIN/TAZOBACTAM/D5W 3.375 G in PREMIXED 1 EACH IV SCH ×2 (05:39→14:27)
[2017-05-06 06:25] LABS: BASOPHILS % (AUTO) 0.1 % (0.0-2.0); HEMOGLOBIN 8.3 g/dL (10.9-14.3); LYMPHOCYTES # (AUTO) 0.8 K/uL (20.0-40.0); LYMPHOCYTES % (AUTO) 10.1 % (20.5-51.5); MEAN CORPUSCULAR HGB CONC 34 g/dL (32.3-35.6); MONOCYTES # (AUTO) 0.5 K/uL (2.0-10.0); MONOCYTES % (AUTO) 5.7 % (0.0-11.0); NEUTROPHILS % (AUTO) 84.1 % (38.5-71.5); PLATELET COUNT (AUTO) 288 K/uL (179-408); RED BLOOD CELL COUNT(AUTO) 2.67 MIL/uL (3.63-4.92); WHITE BLOOD COUNT (AUTO) 8.3 K/uL (3.8-11.8)
--- NOTE | 2017-05-06 06:30 | NUR ---
PT SLEPT WELL, IN NO ACUTE DISTRESS. NO SIGNIFICANT CHANGE OF CONDITION THROUGHOUT THE SHIFT. PAIN MANAGEMENT ORDERED. WILL CONTINUE TO MONITOR.
[2017-05-06 06:55] LABS: CREATININE 0.6 mg/dL (0.6-1.3); MAGNESIUM 1.8 mg/dL (1.8-2.4); PHOSPHOROUS 4.8 mg/dL (2.5-4.9); POTASSIUM 4.4 mmol/L (3.5-5.1)
[2017-05-06] MEDS: LACTOBACILLUS RHAMNOSUS GG 1 EACH CAPSULE PO SCH (08:25)
[2017-05-06] MEDS: SERTRALINE HCL 100 MG TABLET PO SCH (08:25)
[2017-05-06] MEDS: MONTELUKAST SODIUM 10 MG TABLET PO SCH (08:25)
[2017-05-06] MEDS: OMEGA-3 FATTY ACIDS/FISH OIL CAPSULE PO SCH (08:25)
[2017-05-06] MEDS: methylPREDNISolone SOD SUCC 40 MG/ML VIAL IV SCH (08:25)
[2017-05-06] MEDS: CHOLECALCIFEROL 1,000 UNIT TABLET PO SCH (08:26)
[2017-05-06] MEDS: OXYCODONE HCL 20 MG TAB.SR.12H PO SCH (08:26)
[2017-05-06] MEDS: DOXYCYCLINE HYCLATE 100 MG TABLET PO SCH (08:26)
[2017-05-06] MEDS: ASPIRIN EC 81 MG TABLET.DR PO SCH (08:26)
[2017-05-06] MEDS: BREO ELLIPTA INH SCH (08:27)
[2017-05-06] MEDS: MUPIROCIN 2% OINT 22 GM TUBE NS SCH (08:33)
--- NOTE | 2017-05-06 09:45 | NUR ---
report received from [place] RN, pt resting in bed, no distress noted, on 2L02 /nc, has occasional non productive cough, expalined plan of care- verbalized understanding, safety measures maintained, needs attended and met
[2017-05-06 11:08] VITALS: BP 132/57
[2017-05-06] MEDS: ALBUTEROL SULFATE 2.5 MG/3 ML NEBU NEB PRN (11:18)
[2017-05-06] MEDS ORDERED: SOD FERRIC GLUC COMPLX/SUCROSE 125 MG in IV NORMAL SALINE 100 ML IV ONE (11:30)
[2017-05-06] MEDS: FERROUS SULFATE 325 MG TABEC PO SCH (11:33)
[2017-05-06] MEDS ORDERED: GUAIFENESIN/CODEINE 5 ML LIQUID UDC PO PRN (15:00)
[2017-05-06 15:13] VITALS: BP 99/48
[2017-05-06] MEDS ORDERED: GUAI5SYR4 PO (16:24)
[2017-05-06] MEDS ORDERED: MUPI22OI2 NS (16:24)
[2017-05-06] MEDS ORDERED: SENN-167 PO (16:24)
[2017-05-06] MEDS ORDERED: LACT1CAP57 PO (16:24)
[2017-05-06] MEDS ORDERED: METH4TAB3 PO (16:24)
[2017-05-06] MEDS ORDERED: DOXY100T2 PO (16:24)
[2017-05-06] MEDS ORDERED: PIPE3.379 IV (16:24)
--- NOTE | 2017-05-06 17:00 | NUR ---
pt going to snf today- pt informed and in agreement
--- NOTE | 2017-05-06 17:30 | NUR ---
report given to Valery at [facility], ambulance rock picker at 1845- pt informed. Was medicated for pain q 3h prn for generalized pain, no distress ntoed
--- NOTE | 2017-05-06 19:02 | NUR ---
awaiting for ambulance- again called them- coming to pick her up, no distress, call light within reach
--- NOTE | 2017-05-06 20:30 | NUR ---
PATIENT DISCHARGED TO [facility] BY AMBUL[facility] .TOOK ALL BELONGINGS,PATIENT CONDITION STABLE.
== END 2017-05-06 20:32 | DRG 871 ==
LOC: ER 22:02 → TELE 23:30 → MED 05-02 10:30
PROVIDERS: ADMIT Internal Medicine; ATTEND Internal Medicine
DX: A41.9 Sepsis, unspecified organism (principal); J18.9 Pneumonia, unspecified organism; J91.8 Pleural effusion in other conditions classified elsewhere; K81.0 Acute cholecystitis; J44.0 Chronic obstructive pulmonary disease with (acute) lower respiratory infection; E83.42 Hypomagnesemia; M41.9 Scoliosis, unspecified; J44.1 Chronic obstructive pulmonary disease with (acute) exacerbation; N39.0 Urinary tract infection, site not specified; Z68.1 Body mass index [BMI] 19.9 or less, adult; J20.8 Acute bronchitis due to other specified organisms; F17.210 Nicotine dependence, cigarettes, uncomplicated; Z22.322 Carrier or suspected carrier of Methicillin resistant Staphylococcus aureus; E78.5 Hyperlipidemia, unspecified; G89.29 Other chronic pain; K56.41 Fecal impaction; M19.90 Unspecified osteoarthritis, unspecified site; E53.8 Deficiency of other specified B group vitamins; E55.9 Vitamin D deficiency, unspecified; N28.89 Other specified disorders of kidney and ureter; K21.9 Gastro-esophageal reflux disease without esophagitis; K29.70 Gastritis, unspecified, without bleeding; I11.9 Hypertensive heart disease without heart failure; D50.9 Iron deficiency anemia, unspecified; Z79.82 Long term (current) use of aspirin; Z79.899 Other long term (current) drug therapy; F32.9 Major depressive disorder, single episode, unspecified; F41.9 Anxiety disorder, unspecified; R63.6 Underweight; I77.1 Stricture of artery; I70.0 Atherosclerosis of aorta
CPT/HCPCS: 36415; 70030-TC; 71010; 71250; 78445; 83605; 83735; 84100; 85025; 85730; 87040; 87086; 93005; 94640; 94664; A4663; A9537; J1170; J2405; J2543; J2916; J2920; J3480; J3490; J7030; J7050; Q9951; Q9967

== ENCOUNTER 2017-09-18 18:57 | Inpatient (IN) | payer MEDICARE, MEDICAID ==
[~2017-09-18] VITALS: Ht 170.2 cm; Wt 49.4 kg
[~2017-09-18 18:57] MED LIST changes: -CYAN10006 IM; +DOXY100T2 PO; -GUAI100S9 PO; +GUAI5SYR4 PO; +LACT1CAP57 PO; +MUPI22OI2 NS; +OXYC20TA73 PO; -Oxycodone Sr PO; +PIPE3.379 IV; +SENN-167 PO; +UBID100C PO
[2017-09-18 20:55] LABS: BASOPHILS # (AUTO) 0.1 K/uL (0.0-8.0); BASOPHILS % (AUTO) 0.9 % (0.0-2.0); EOSINOPHILS # (AUTO) 0.1 K/uL (0.0-0.7); EOSINOPHILS % (AUTO) 1.8 % (0.0-7.0); HEMATOCRIT 40.1 % (31.2-41.9); HEMOGLOBIN 13.7 g/dL (10.9-14.3); LYMPHOCYTES # (AUTO) 2.6 K/uL (20.0-40.0); LYMPHOCYTES % (AUTO) 31.9 % (20.5-51.5); MEAN CORPUSCULAR HEMOGLOBIN 29.9 uug (24.7-32.8); MEAN CORPUSCULAR HGB CONC 34 g/dL (32.3-35.6); MEAN CORPUSCULAR VOLUME 87.6 fL (75.5-95.3); MONOCYTES # (AUTO) 0.8 K/uL (2.0-10.0); MONOCYTES % (AUTO) 9.1 % (0.0-11.0); NEUTROPHILS # (AUTO) 4.6 K/uL (1.8-8.9); NEUTROPHILS % (AUTO) 56.3 % (38.5-71.5); PLATELET COUNT (AUTO) 253 K/uL (179-408); RED BLOOD CELL COUNT(AUTO) 4.58 MIL/uL (3.63-4.92); WHITE BLOOD COUNT (AUTO) 8.2 K/uL (3.8-11.8)
[2017-09-18 21:05] LABS: CREATININE 0.7 mg/dL (0.6-1.3); POTASSIUM 4.2 mmol/L (3.5-5.1)
[2017-09-18 21:10] LABS: BILIRUBIN,DIRECT 0.1 mg/dL (0.0-0.2); BILIRUBIN,TOTAL 0.3 mg/dL (0.2-1.0); TOTAL PROTEIN, SERUM 7.3 g/dL (6.4-8.2)
[2017-09-18] MEDS ORDERED: ATOR20TA PO (22:23)
[2017-09-18] MEDS ORDERED: DEMEROL PO (22:41)
[2017-09-18] MEDS ORDERED: ONDANSETRON 4 MG/2 ML VIAL IV PRN (23:45)
[2017-09-18] MEDS ORDERED: MAGNESIUM HYDROXIDE 30 ML LIQUID UDC PO PRN (23:45)
[2017-09-18] MEDS ORDERED: ACETAMINOPHEN 325 MG TABLET PO PRN (23:45)
[2017-09-18] MEDS ORDERED: HYDROMORPHONE 1 MG/1 ML DISP.SYRIN IV PRN (23:45)
[2017-09-19] VITALS (8 sets, daily range): BP systolic 104–130; BP diastolic 55–70
[2017-09-19] MEDS: HYDROMORPHONE 2 MG/1 ML DISP.SYRIN IVP PRN ×5 (06:02→22:09)
[2017-09-19] MEDS: PANTOPRAZOLE SODIUM 40 MG TABLET.DR PO SCH (06:37)
[2017-09-19 07:05] LABS: BASOPHILS # (AUTO) 0.1 K/uL (0.0-8.0); BASOPHILS % (AUTO) 0.8 % (0.0-2.0); EOSINOPHILS # (AUTO) 0.2 K/uL (0.0-0.7); EOSINOPHILS % (AUTO) 2.7 % (0.0-7.0); HEMATOCRIT 39.5 % (31.2-41.9); HEMOGLOBIN 13.3 g/dL (10.9-14.3); LYMPHOCYTES % (AUTO) 42.9 % (20.5-51.5); MEAN CORPUSCULAR HEMOGLOBIN 29.9 uug (24.7-32.8); MEAN CORPUSCULAR HGB CONC 34 g/dL (32.3-35.6); MEAN CORPUSCULAR VOLUME 88.5 fL (75.5-95.3); MONOCYTES # (AUTO) 0.7 K/uL (2.0-10.0); MONOCYTES % (AUTO) 9.5 % (0.0-11.0); NEUTROPHILS # (AUTO) 3.1 K/uL (1.8-8.9); NEUTROPHILS % (AUTO) 44.1 % (38.5-71.5); PLATELET COUNT (AUTO) 252 K/uL (179-408); RED BLOOD CELL COUNT(AUTO) 4.46 MIL/uL (3.63-4.92)
[2017-09-19 07:25] LABS: BILIRUBIN,TOTAL 0.3 mg/dL (0.2-1.0); CREATININE 0.6 mg/dL (0.6-1.3); MAGNESIUM 1.9 mg/dL (1.8-2.4); PHOSPHOROUS 3.4 mg/dL (2.5-4.9); POTASSIUM 3.9 mmol/L (3.5-5.1); TOTAL PROTEIN, SERUM 6.9 g/dL (6.4-8.2)
[2017-09-19] MEDS: SERTRALINE HCL 100 MG TABLET PO SCH (08:20)
[2017-09-19] MEDS: MONTELUKAST SODIUM 10 MG TABLET PO SCH (08:20)
[2017-09-19] MEDS: AMLODIPINE 5 MG TABLET PO SCH (08:20)
[2017-09-19] MEDS: FLUTICASONE/VILANTEROL 1 EACH BLST.W.DEV INH SCH (08:21)
[2017-09-19] MEDS ORDERED: ZOLPIDEM 5 MG TABLET PO PRN (14:15)
[2017-09-19] MEDS: DOCUSATE SODIUM 100 MG CAPSULE PO SCH (20:48)
[2017-09-19] MEDS: ATORVASTATIN 20 MG TABLET PO SCH (20:49)
[2017-09-19] MEDS ORDERED: IBUPROFEN 400 MG TABLET PO PRN (21:45)
[2017-09-19 22:24] LABS: *BILIRUBIN,URIN NEGATIVE (NEGATIVE); *BLOOD, URINE NEGATIVE (NEGATIVE); *CLARITY,URINE CLEAR (CLEAR); *COLOR,URINE YELLOW (YELLOW); *KETONES,URINE NEGATIVE (NEGATIVE); *PROTEIN,URINE NEGATIVE (NEGATIVE); *UROBILINOGEN,URINE 0.2 E.U./dl (NORMAL); LEUKOCYTE ESTERASE ,URINE NEGATIVE (NEGATIVE); NITRITE, URINE NEGATIVE (NEGATIVE); UGLUCOSE NEGATIVE (NEGATIVE)
[2017-09-19 22:33] LABS: BACTERIA,URINE NONE SEEN /HPF (NONE SEEN); RBC,URINE 0-3 /HPF (0-3); SQUAMOUS EPITHELIAL CELL,UR FEW /HPF (NONE SEEN); WBC,URINE 0-3 /HPF (0-3); YEAST,URINE FEW /HPF (NONE SEEN)
[2017-09-19 22:35] LABS: *AMPHETAMINE, URINE NEGATIVE (NEGATIVE); *BARBITURATE, URINE NEGATIVE (NEGATIVE); *CANNABINOID, URINE NEGATIVE (NEGATIVE); *COCCAINE, URINE NEGATIVE (NEGATIVE); *OPIATE, URINE POSITIVE (NEGATIVE); *PHENCYCLIDINE SCREEN,URINE NEGATIVE (NEGATIVE)
[2017-09-19] MEDS ORDERED: CEFTRIAXONE 1 G VIAL ONE (22:57)
[2017-09-19] MEDS: CEFTRIAXONE 1 G in IV DEXTROSE 5% 50 ML IV SCH (23:25)
[2017-09-20 00:35] VITALS: BP 104/57
[2017-09-20] MEDS: HYDROMORPHONE 2 MG/1 ML DISP.SYRIN IVP PRN ×6 (02:16→22:14)
[2017-09-20 04:00] VITALS: BP 141/62
[2017-09-20] MEDS: PANTOPRAZOLE SODIUM 40 MG TABLET.DR PO SCH (06:30)
[2017-09-20] MEDS: MONTELUKAST SODIUM 10 MG TABLET PO SCH (09:23)
[2017-09-20] MEDS: AMLODIPINE 5 MG TABLET PO SCH (09:23)
[2017-09-20] MEDS: FLUTICASONE/VILANTEROL 1 EACH BLST.W.DEV INH SCH (09:23)
[2017-09-20] MEDS: SERTRALINE HCL 100 MG TABLET PO SCH (09:24)
[2017-09-20] MEDS ORDERED: FLUCONAZOLE 100 MG TABLET PO ONE (11:15)
[2017-09-20 11:38] VITALS: BP 124/58
[2017-09-20 15:50] VITALS: BP 119/50
[2017-09-20 20:00] VITALS: BP 122/68
[2017-09-20] MEDS: DOCUSATE SODIUM 100 MG CAPSULE PO SCH (20:15)
[2017-09-20] MEDS: ATORVASTATIN 20 MG TABLET PO SCH (20:15)
[2017-09-20] MEDS: CEFTRIAXONE 1 G in IV DEXTROSE 5% 50 ML IV SCH (22:14)
[2017-09-21] MEDS ORDERED: HYDROMORPHONE 4 MG/1 ML DISP.SYRIN IVP PRN (02:05)
[2017-09-21 04:50] VITALS: BP 125/52
[2017-09-21] MEDS: PANTOPRAZOLE SODIUM 40 MG TABLET.DR PO SCH (06:33)
[2017-09-21] MEDS: SERTRALINE HCL 100 MG TABLET PO SCH (09:09)
[2017-09-21] MEDS: MONTELUKAST SODIUM 10 MG TABLET PO SCH (09:09)
[2017-09-21] MEDS: FLUTICASONE/VILANTEROL 1 EACH BLST.W.DEV INH SCH (09:11)
[2017-09-21] MEDS: AMLODIPINE 5 MG TABLET PO SCH (09:14)
[2017-09-21] MEDS: HYDROMORPHONE 2 MG/1 ML DISP.SYRIN IV PRN ×2 (09:36→13:32)
[2017-09-21 11:10] VITALS: BP 104/60
[2017-09-21 15:13] VITALS: BP 99/58
[2017-09-21] MEDS ORDERED: LEVO500T2 PO (15:45)
[2017-09-21] MEDS ORDERED: HYDR2TAB4 PO (15:45)
[2017-09-21] MEDS ORDERED: FLUC150T PO (15:45)
== END 2017-09-21 16:33 | DRG 202 ==
LOC: ER 18:59 → TELE 23:00 → MED 09-20 12:41
PROVIDERS: ADMIT Internal Medicine; ATTEND Internal Medicine
DX: J20.9 Acute bronchitis, unspecified (principal); I38 Endocarditis, valve unspecified; J44.0 Chronic obstructive pulmonary disease with (acute) lower respiratory infection; B49 Unspecified mycosis; E83.42 Hypomagnesemia; N39.0 Urinary tract infection, site not specified; J44.1 Chronic obstructive pulmonary disease with (acute) exacerbation; R55 Syncope and collapse; M41.9 Scoliosis, unspecified; T40.2X5A Adverse effect of other opioids, initial encounter; Y92.009 Unspecified place in unspecified non-institutional (private) residence as the place of occurrence of the external cause; F17.210 Nicotine dependence, cigarettes, uncomplicated; E78.5 Hyperlipidemia, unspecified; K56.41 Fecal impaction; G89.29 Other chronic pain; M54.9 Dorsalgia, unspecified; K21.9 Gastro-esophageal reflux disease without esophagitis; D17.71 Benign lipomatous neoplasm of kidney; Z79.899 Other long term (current) drug therapy; Z79.82 Long term (current) use of aspirin; M19.90 Unspecified osteoarthritis, unspecified site; I70.0 Atherosclerosis of aorta; I10 Essential (primary) hypertension; D50.9 Iron deficiency anemia, unspecified; R51 Headache; Z91.81 History of falling
CPT/HCPCS: 36415; 70030-TC; 70450; 71045; 80307; 83690; 83735; 84100; 85025; 85730; 87086; 93005; 95819; A4663; J0696; J1170; J7030; J7050; J7060